=== PATIENT | female | born 1970 | race Two or more races ===

== ENCOUNTER 2021-06-16 14:55 | Emergency (ER) | payer BC ==
--- NOTE | 2021-06-16 14:58 | EDM.PDOC ---
ED HPI GENERAL MEDICAL PROBLEM - General Stated Complaint: PELVIC PAIN Time Seen by Provider: 06/16/21 14:57 - History of Present Illness INITIAL COMMENTS - FREE TEXT/NARRATIVE: History of present illness: [] This patient is never seen a doctor never used her insurance says that she gets pain in the right lower quadrant essentially monthly when she has a menstrual period. She is on her menstrual period now. Last night the pain was unbearable and sharp. This is unusual for her. She is not losing more blood than usual. She has no fever and chills. She does not feel dizzy or like she will pass out. Review of systems: As per history of present illness and below otherwise all systems reviewed and negative. Past medical history: As per history of present illness and as reviewed below otherwise noncontributory. Surgical history: As per history of present illness and as reviewed below otherwise noncontributory. Social history: No reported history of drug or alcohol abuse. Family history: As per history of present illness and as reviewed below otherwise noncontributory. Physical exam: Constitutional - well developed, well-nourished and in no acute distress the patient was alert and able to ambulate and wait in waiting room. Unfortunately while in the waiting room she informed the admission staff without informing me that she did not want to wait and she left. She had told me when she was standing in that she had markedly improved since last night. And she also had this pain every month but it was little worse last night. Diagnostics: [] Therapeutics: [] Impression: [] Plan: [] Definitive disposition and diagnosis as appropriate pending reevaluation and review of above. abdomen Pain Score (Numeric/FACES): 8 - Related Data Allergies Allergy/AdvReac Type Severity Reaction Status Date / Time No Known Allergies Allergy Verified 06/16/21 15:57 ED ROS GENERAL - Review of Systems Review Of Systems: Unable To Obtain Reason Not Obtained: Patient left before I completed the history ED EXAM, GENERAL - Physical Exam Exam: See Below Free Text/Narrative:: Physical exam was not completed because the patient left from the waiting room without letting me know Course - Vital Signs Last Recorded V/S: Last Vital Signs Temp 36.0 C L 06/16/21 15:51 Pulse 66 06/16/21 15:51 Resp 18 06/16/21 15:51 BP 121/82 06/16/21 15:51 Pulse Ox 98 06/16/21 15:51 - Orders/Labs/Meds Labs: Laboratory Tests 06/16/21 06/16/21 06/16/21 Range/Units 16:10 16:10 16:27 WBC 6.84 (4.0-11.0) K/uL RBC 4.12 L (4.30-5.90) M/uL Hgb 12.6 (12.0-16.0) g/dL Hct 37.1 (36.0-46.0) % MCV 90.0 (80.0-98.0) fL MCH 30.6 (27.0-32.0) pg MCHC 34.0 (31.0-37.0) g/dL RDW Std Deviation 44.8 (28.0-62.0) fl RDW Coeff of Amira 14 (11.0-15.0) % Plt Count 246 (150-400) K/uL MPV 10.30 (7.40-12.00) fL Neut % (Auto) 57.8 (48.0-80.0) % Lymph % (Auto) 31.9 (16.0-40.0) % [place] % (Auto) 7.2 (0.0-15.0) % Eos % (Auto) 2.5 (0.0-7.0) % Baso % (Auto) 0.6 (0.0-1.5) % Neut # (Auto) 4.0 (1.4-5.7) K/uL Lymph # (Auto) 2.2 (0.6-2.4) K/uL [place] # (Auto) 0.5 (0.0-0.8) K/uL Eos # (Auto) 0.2 (0.0-0.7) K/uL Baso # (Auto) 0.0 (0.0-0.1) K/uL Nucleated RBC % 0.0 /100WBC Nucleated RBCs # 0 K/uL Urine Color PINK Urine Appearance HAZY Urine pH 6.0 (5.0-8.0) Ur Specific [place] <= 1.005 (1.001-1.035) Urine Protein TRACE H (NEGATIVE) mg/dL Urine Glucose (UA) NEGATIVE (NEGATIVE) mg/dL Urine Ketones NEGATIVE (NEGATIVE) mg/dL Urine Occult Blood MODERATE H (NEGATIVE) Urine Nitrite POSITIVE H (NEGATIVE) Urine Bilirubin NEGATIVE (NEGATIVE) Urine Urobilinogen 0.2 (<2.0) EU/dL Ur Leukocyte Esterase NEGATIVE (NEGATIVE) Urine RBC 5-10 (0-2/HPF) Urine WBC 0-2 (0-5/HPF) Ur Epithelial Cells RARE (NONE-FEW) Urine Bacteria FEW (NEGATIVE) Urine HCG, Qual NEGATIVE (NEGATIVE) Departure - Departure Time of Disposition: 16:00 Disposition: Eloped 07 Condition: Undetermined Clinical Impression: Pelvic pain - Discharge Information Referrals: PCP,None [Primary Care Provider] - Forms: ED Department Discharge Additional Instructions: Patient left without obtaining of instructions
== END 2021-06-16 18:21 | disposition left against medical advice (07) ==
LOC: MW.ED 14:55
DX: R10.2 Pelvic and perineal pain (principal)
CPT/HCPCS: 36415; 81001; 81025; 85025; 99284